=== PATIENT | male | born 1970 | race Hispanic/Latino ===

== ENCOUNTER 2024-09-10 16:15 | Emergency (ER) | payer MEDICARE, OTHER ==
[2024-09-10 16:20] VITALS: PULSE 109; RESP 16; TEMP 99.5
[2024-09-10 16:41] VITALS: BP 104/66; PULSE 104; RESP 16; TEMP 99.4; O2SAT 96
[2024-09-14] MEDS ORDERED: PROAIR DIGIHAL90 MCG INH (14:46)
[2024-09-14] MEDS ORDERED: ONDANSETRON ODT4 MG PO (14:46)
[2024-09-14] MEDS ORDERED: BENZONATATE100 MG PO (14:46)
[2024-09-14] MEDS ORDERED: AMOXICILLIN500 MG PO (14:46)
== END 2024-09-10 16:40 | disposition home or self-care (01) ==
LOC: FSED 16:19
DX: Z03.89 Encounter for observation for other suspected diseases and conditions ruled out (principal); E03.9 Hypothyroidism, unspecified; F84.0 Autistic disorder
CPT/HCPCS: 99284